=== PATIENT | male | born 1975 | race Caucasian/White ===

== ENCOUNTER 2016-07-03 09:13 | Emergency (ER) | payer BC ==
[2016-07-03 09:50] VITALS: TEMP 98.9
[2016-07-03 10:07] LABS: BASOPHILS % (AUTO) 1 % (0-3); EOSINOPHILS % (AUTO) 1 % (0-9); HEMATOCRIT 33 % (39-53); MEAN CORPUSCULAR HGB CONC 34.2 gm/dl (32.0-36.0); MEAN CORPUSCULAR VOLUME 89 fL (80-100); MONOCYTES % (AUTO) 3.7 % (0-12); NEUTROPHILS % (AUTO) 68.8 % (37-80)
[2016-07-03 10:11] LABS: ALBUMIN 3.6 gm/dl (3.4-5.0); ALT 41 IU/L (14-63); CALCIUM 8.4 mg/dl (8.5-10.1); GLOM FILT RATE 99 mL/min (>60); POTASSIUM 3.9 mMol/L (3.5-5.1); SODIUM 142 mMol/L (136-145)
[2016-07-03] MEDS ORDERED: DEXAMETHASONE IV SCH (10:15)
[2016-07-03] MEDS ORDERED: DEXAMETHASONE 20 MG/5 ML (4 MG/ML SOL) ONE (10:21)
[2016-07-03 10:31] VITALS: O2SAT 99
[2016-07-03 10:50] VITALS: BP 118/79; PULSE 65; RESP 21
== END 2016-07-03 10:52 | disposition short-term general hospital (02) ==
LOC: ED 09:13
DX: R47.81 Slurred speech (principal); E86.0 Dehydration; Z85.841 Personal history of malignant neoplasm of brain
CPT/HCPCS: 99285 ×3; 70450; 71010; 80053; 84484; 85025; 85610; 85730; 93005; 96374; 99284; J1100; 36415